=== PATIENT | female | born 1965 | race African-American/Black ===

== ENCOUNTER 2019-12-15 07:23 | Emergency (ER) | payer OTHER ==
[~2019-12-15] VITALS: Ht 162.6 cm; Wt 81.6 kg
[2019-12-15 07:34] VITALS: BP 135/78
[2019-12-15] MEDS ORDERED: KETOROLAC TROMETH 60MG/2ML VIAL IM ONE (07:45)
== END 2019-12-15 08:44 | disposition home or self-care (01) ==
LOC: ER 07:23
DX: S52.92XA Unspecified fracture of left forearm, initial encounter for closed fracture (principal); E03.9 Hypothyroidism, unspecified; F17.210 Nicotine dependence, cigarettes, uncomplicated; W01.0XXA Fall on same level from slipping, tripping and stumbling without subsequent striking against object, initial encounter; Y93.89 Activity, other specified; Y92.89 Other specified places as the place of occurrence of the external cause; Y99.8 Other external cause status
CPT/HCPCS: 29125; 73110; 73130; 96372; 99284; J1885

== ENCOUNTER 2023-09-11 21:56 | Emergency (ER) | payer OTHER ==
[~2023-09-11] VITALS: Ht 160 cm; Wt 76.3 kg
[2023-09-11 22:15] LABS: Basophils # (auto) 0.1 10 ^3/uL (0-0.2); Basophils % (auto) 0.6 % (0.0-2.0); Eosinophils # (auto) 0.1 10 ^3/uL (0-0.8); Eosinophils % (auto) 1.2 % (0.0-7.0); Hematocrit 40.8 % (36.0-46.0); Hemoglobin 13.3 g/dL (12.2-16.2); Lymphocytes # (auto) 2.1 10 ^3/uL (0.4-5.4); Lymphocytes % (auto) 22.8 % (10.0-50.0); Mean Corpuscular Hemoglobin 29.9 pg (28.0-32.0); Mean Corpuscular Hgb Conc. 32.6 g/dL (32.0-36.0); Mean Corpuscular Volume 91.8 fL (80.0-100.0); Monocytes # (auto) 0.7 10 ^3/uL (0-1.3); Monocytes % (auto) 8.2 % (0.0-12.0); Neutrophils # (auto) 6.1 10 ^3/uL (1.6-8.6); Neutrophils % (auto) 67.2 % (37.0-80.0); Nucleated Red Blood Cells % 0.1 %; Red Blood Cells 4.44 10^6/uL (4.0-5.20); Red Cell Distribution Width 13.5 % (11.8-14.3); White Blood Cell 9.1 10^3/uL (4.4-10.8)
[2023-09-11 22:33] LABS: Alanine Aminotransferase 23 U/L (7-40); Albumin 4.1 g/dL (3.2-4.8); Alkaline Phosphatase 91 U/L (46-116); Anion Gap 5 (5-15); Aspartate Aminotransferase 19 U/L (13-40); BUN/Creatinine Ratio 13.5 (10.0-20.0); Blood Urea Nitrogen 12 mg/dL (9-23); Calcium 9.9 mg/dL (8.7-10.4); Carbon Dioxide 24 mmol/L (20-30); Chloride 112 mmol/L (98-107); Glucose 104 mg/dL (74-106); Potassium 3.9 mmol/L (3.5-5.1); Sodium 141 mmol/L (136-145)
[2023-09-11 22:34] LABS: Bilirubin, Total 0.8 mg/dL (0.2-1.0); Total Protein 6.8 g/dL (5.7-8.2)
[2023-09-11 22:46] LABS: Urine Bacteria None Seen /hpf (None Seen)
[2023-09-11 23:02] LABS: Urine Blood Negative /uL (Negative); Urine Clarity Turbid (Clear); Urine Color Colorless (Yellow); Urine Mucus FEW (None Seen); Urine Protein, UAD Negative (Negative); Urine Specific Gravity 1.026 (1.001-1.035); Urine Urobilinogen Normal (Negative); Urine WBC 3 /hpf (0 - 5); Urine pH 5.5 (5.0-9.0)
[2023-09-12 00:33] VITALS: BP 148/86; PULSE 95; RESP 14; TEMP 98.7; O2SAT 96
[2023-09-12] MEDS ORDERED: IBUP-1456 PO (04:04)
[2023-09-12] MEDS ORDERED: METH-1181 PO (04:04)
[2023-09-12] MEDS: KETOROLAC TROMETH 60MG/2ML VIAL IM ONE (04:20)
[2023-09-12] MEDS: METHOCARBAMOL 500 MG TAB PO ONE (04:21)
== END 2023-09-12 04:30 | disposition home or self-care (01) ==
LOC: ER 21:56
DX: R07.89 Other chest pain (principal); M62.830 Muscle spasm of back; M79.605 Pain in left leg; M19.90 Unspecified osteoarthritis, unspecified site; J45.909 Unspecified asthma, uncomplicated; E07.9 Disorder of thyroid, unspecified; F17.210 Nicotine dependence, cigarettes, uncomplicated; Z90.49 Acquired absence of other specified parts of digestive tract; Z90.710 Acquired absence of both cervix and uterus
CPT/HCPCS: 36415; 71045; 74176; 80053; 81001; 82962; 84484; 85025; 93005; 96372; 99285; J1885

== ENCOUNTER 2024-04-30 11:06 | Emergency (ER) | payer OTHER ==
[~2024-04-30] VITALS: Ht 157.5 cm; Wt 76.8 kg
[~2024-04-30 11:06] MED LIST: IBUP-1456 PO; METH-1181 PO
--- NOTE | 2024-04-30 11:34 | ED.PDOC ---
SOB-HPI HPI Comments 58 y/o F, with PMHX of asthma and bronchitis presents to the ED for CC of shortness of breath. Patient states, she has been experiencing shortness of breath with associated symptoms of cough, fever, chest discomfort xdays. Patient comments on, concerned of potential pneumonia. Patient denies fever, nasal congestion, sore throat, or N/V/D. No other symptoms or modifying factors at this time. Chief Complaint: Shortness of Breath Time Seen by MD: 11:00 Primary Care Provider: UNKNOWN Reviewed notes: Nurses Notes, Medications, Allergies Information Source: Patient Mode of Arrival: Ambulatory Severity: Moderate Timing: Days Duration: Since onset Context: At Rest PE Risk Factors: None History of: Asthma Prehospital treatment: None Modifying Factors: Nothing Associated Signs and Symptoms: Fever, Cough Past Medical History PAST MEDICAL HISTORY: Arthritis, Asthma, Thyroid Past Medical History (Other): bronchitis Surgical History: Appendectomy, Hysterectomy Surgical History (Other): gluteal fat transfer 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, Uterine Fibroids Family History Family History: Unknown Social History Smoker: Cigarettes, Less Than 1 Pack/Day Alcohol: Denies ETOH Use Drugs: Denies Drug Use Lives In: Home Constitutional: denies: chills, diaphoresis, fatigue, fever, malaise, sweats, weakness, others EENTM: denies: blurred vision, double vision, ear bleeding, ear discharge, ear drainage, ear pain, ear ringing, eye pain, eye redness, hearing loss, mouth pain, mouth swelling, nasal discharge, nose bleeding, nose congestion, nose pain, photophobia, tearing, throat pain, throat swelling, voice changes, others Respiratory: reports: cough, shortness of breath; denies: hemoptysis, or thopnea, SOB at rest, SOB with excertion, stridor, wheezing, others Cardiovascular: denies: chest pain, dizzy spells, diaphoresis, Dyspnea on exertion, edema, irregular heart beat, left arm pain, lightheadedness, palpitations, PND, syncope, others Gastrointestinal: denies: abdomen distended, abdominal pain, blood streaked bowels, constipated, diarrhea, dysphagia, difficulty swallowing, hematemesis, melena, nausea, poor appetite, poor fluid intake, rectal bleeding, rectal pain, vomiting, others Genitourinary: denies: abnormal vagina bleeding, burning, dyspareunia, dysuria, flank pain, frequency, hematuria, incontinence, pain, , vagina discharge, urgency, others Neurological: denies: dizziness, fainting, headache, left sided numbness, left sided weakness, numbness, paresthesia, pre-existing deficit, right sided numbness, right sided weakness, seizure, speech problems, tingling, tremors, weakness, others Musculoskeletal: denies: back pain, gout, joint pain, joint swelling, muscle pain, muscle stiffness, neck pain, others Integumetry: denies: bruises, change in color, change in hair/nails, dryness, laceration, lesions, lumps, rash, wounds, others Allergic/Immunocompromised: denies: Difficulty Healing, Frequent Infections, Hives, Itching, others Hematologic/Lymphatic: denies: anemia, blood clots, easy bleeding, easy bruising, swollen glands, others Endocrine: denies: excessive hunger, excessive sweating, excessive thirst, excessive urination, flushing, intolerance to cold, intolerance to heat, unexplained weight gain, unexplained weight loss, others Psychiatric: denies: anxiety, bipolar disorder, depression, hopeless, panic disorder, schizophrenia, sleepless, suicidal, others All Other Systems: Reviewed and Negative Physical Exam General Appearance: Moderate Distress HEENT: Normal ENT Inspection, Pharynx Normal, TMs Normal Neck: Full Range of Motion, Non-Tender, Normal, Normal Inspection Respiratory: Other (Coarse breath sounds) Cardiovascular: No Edema, No JVD, No Murmur, No Gallop, Normal Peripheral Pulses, Regular Rate/Rhythm Breast Exam: Deferred Gastrointestinal: No Organomegaly, Non Tender, No Pulsatile Mass, Normal Bowel Sounds, Soft Genitalia: Deferred Pelvic: Deferred Rectal: Deferred Extremities: No calf tenderness, Normal capillary refill, Normal inspection, Normal range of motion, Non-tender, No pedal edema Musculoskeletal : Apperance: Normal Neurologic: 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 Was a procedure done?: No Differential Dx Differential Diagnosis: Anxiety, Asthma, Bronchitis, CHF, COPD, Pneumonia, Pharyngitis, URI X-Ray, Labs, Meds, VS Vital Signs Date Time Temp Pulse Resp B/P (MAP) Pulse Ox O2 Delivery O2 Flow Rate FiO2 04/30/24 11:34 110 04/30/24 11:29 20 95 Room Air* 0 21 04/30/24 11:24 98.6 114 20 141/90 (107) 95 Lab Test 04/30/24 12:45 04/30/24 11:26 Range/Units Urine Color Light-yellow Yellow Urine Clarity Clear Clear Urine pH 5.5 5.0-9.0 Urine Specific [place] 1.009 1.001-1.035 Urine Protein Negative Negative Urine Ketones Negative Negative Urine Blood Negative Negative /uL Urine Nitrite Negative Negative Urine Bilirubin Negative Negative Urine Urobilinogen Normal Negative mg/dL Urine Leukocyte Esterase Negative Negative /uL Urine RBC None seen 0 - 4 /hpf Urine Microscopic WBC 2 0-5 /HPF Urine Squamous Epithelial Cells Few <5 /hpf Urine Bacteria Few H None Seen /hpf Urine Glucose Normal Normal mg/dL White Blood Count 6.3 4.4-10.8 10^3/uL Red Blood Count 4.30 4.0-5.20 10^6/uL Hemoglobin 12.9 12.2-16.2 g/dL Hematocrit 39.7 36.0-46.0 % Mean Corpuscular Volume 92.3 80.0-100.0 fL Mean Corpuscular Hemoglobin 30.0 28.0-32.0 pg Mean Corpuscular Hemoglobin Concent 32.5 32.0-36.0 g/dL Red Cell Distribution Width 13.8 11.8-14.3 % Platelet Count 350 140-450 10^3/uL Mean Platelet Volume 7.7 6.9-10.8 fL Neutrophils (%) (Auto) 52.1 37.0-80.0 % Lymphocytes (%) (Auto) 36.1 10.0-50.0 % Monocytes (%) (Auto) 10.1 0.0-12.0 % Eosinophils (%) (Auto) 1.3 0.0-7.0 % Basophils (%) (Auto) 0.4 0.0-2.0 % Neutrophils # (Auto) 3.3 1.6-8.6 10 ^3/uL Lymphocytes # (Auto) 2.3 0.4-5.4 10 ^3/uL Monocytes # (Auto) 0.6 0-1.3 10 ^3/uL Eosinophils # (Auto) 0.1 0-0.8 10 ^3/uL Basophils # (Auto) 0 0-0.2 10 ^3/uL Nucleated Red Blood Cells 0.1 % Sodium Level 143 136-145 mmol/L Potassium Level 3.6 3.5-5.1 mmol/L Chloride Level 110 H 98-107 mmol/L Carbon Dioxide Level 23 20-31 mmol/L Anion Gap 10 5-15 Blood Urea Nitrogen 8 L 9-23 mg/dL Creatinine 0.83 0.550-1.02 mg/dL Glomerular Filtration Rate Calc 81 >90 mL/min BUN/Creatinine Ratio 9.6 L 10.0-20.0 Serum Glucose 87 74-106 mg/dL Calcium Level 9.6 8.7-10.4 mg/dL [place] [id number] Ph: [phone] DIAGNOSTIC IMAGING Diagnostic Imaging Report : [id number] Signed PATIENT: SORAYA KU LACCT: [id number] UNIT: [id number] : 1965 LOC: ER ROOM / BED: / AGE / SEX: 58 / F ADM STATUS: REG ER SERVICE 111 ORDERING PHYSICIAN: RISSA SHEIKH MD PROCEDURE(s): CXRP - CHEST PORTABLE REASON: sob ORDER NUMBER(s): [id number], ACCESSION NUMBER(s): [id number] CHEST RADIOGRAPH Indication: sob Technique: Single frontal view of the chest was obtained COMPARISON: XY CHEST XRAY 1 VIEW on DOS: 09/12/23 FINDINGS: Lines and Tubes: None Lungs: Increased interstitial prominence Pleura: No effusion. No pneumothorax. Cardiomediastinal contours: Unremarkable Bones: Unremarkable IMPRESSION: Mild pulmonary vascular congestion ATED BY: CHRISTIAN LIRA MD DICTATED DATE/TIME: 04/30/24 1146 SIGNED BY: CHRISTIAN LIRA MD SIGNED DATE/TIME: 04/30/24 1146 CC: Patient alert. Complaining of shortness a breath. No leg swelling. Vitals stable. On examination she does have coarse breath sounds possible COPD exacerbation versus CHF. She continues to smoke cigarettes. Tachycardia. Was given steroid. Was given Lasix. Chest x-ray reviewed does show CHF. WBC within normal limits. Hemoglobin within normal limits. Explained to the patient. Continue cardiac monitoring. Time of 1ST Reevaluation: 11:30 Reevaluation 1ST: Unchanged Patient Education/Counseling: Diagnosis, Treatment Family Education/Counseling: No Family Present Additional Information I reviewed the following notes from patient's past medical encounters: 09/11/23 DX: CHEST TIGHTNESS The following tests were ordered, and results were reviewed by me: CBC, BMP, UA, CXR, EKG I reviewed and agreed with the following test results read by other providers: CXR I discussed treatment and results with medical personnel and: PATIENT Departure 1 Departure Time of Disposition: 11:58 Impression: Primary Impression: Diastolic heart failure Qualified Codes: I50.33 - Acute on chronic diastolic (congestive) heart failure Additional Impressions: COPD exacerbation Pneumonitis Disposition: ADMITTED INPATIENT Admit to: Med Surg Condition: Guarded Critical Care Note Critical Care Time?: No Stability Stability form required: No Heart Score Heart Score: Heart Score Response (Comments) Value History N/A 0 EKG N/A 0 Age N/A 0 Risk Factors N/A 0 Troponin N/A 0 Total 0 I personally scribed for RISSA SHEIKH MD ([email or web address]) on 04/30/24 at 11:33. Electronically submitted by Freida Wick ([email or web address]). I personally scribed for RISSA SHEIKH MD ([email or web address]) on 04/30/24 at 12:00. Electronically submitted by Freida Wick ([email or web address]). I personally scribed for RISSA SHEIKH MD ([email or web address]) on 04/30/24 at 13:26. Electronically submitted by Freida Wick ([email or web address]). RISSA SHEIKH MD Apr 30, 2024 11:33
[2024-04-30 11:45] LABS: Basophils # (auto) 0 10 ^3/uL (0-0.2); Basophils % (auto) 0.4 % (0.0-2.0); Eosinophils # (auto) 0.1 10 ^3/uL (0-0.8); Eosinophils % (auto) 1.3 % (0.0-7.0); Hematocrit 39.7 % (36.0-46.0); Hemoglobin 12.9 g/dL (12.2-16.2); Lymphocytes # (auto) 2.3 10 ^3/uL (0.4-5.4); Lymphocytes % (auto) 36.1 % (10.0-50.0); Mean Corpuscular Hgb Conc. 32.5 g/dL (32.0-36.0); Mean Corpuscular Volume 92.3 fL (80.0-100.0); Monocytes # (auto) 0.6 10 ^3/uL (0-1.3); Monocytes % (auto) 10.1 % (0.0-12.0); Neutrophils # (auto) 3.3 10 ^3/uL (1.6-8.6); Neutrophils % (auto) 52.1 % (37.0-80.0); Nucleated Red Blood Cells % 0.1 %; Platelet Count (auto) 350 10^3/uL (140-450); Red Cell Distribution Width 13.8 % (11.8-14.3); White Blood Cell 6.3 10^3/uL (4.4-10.8)
--- NOTE | 2024-04-30 11:49 | DVH ---
CHEST RADIOGRAPH Indication: sob Technique: Single frontal view of the chest was obtained COMPARISON: XY CHEST XRAY 1 VIEW on DOS: 09/12/23 FINDINGS: Lines and Tubes: None Lungs: Increased interstitial prominence Pleura: No effusion. No pneumothorax. Cardiomediastinal contours: Unremarkable Bones: Unremarkable IMPRESSION: Mild pulmonary vascular congestion
[2024-04-30 11:56] LABS: Potassium 3.6 mmol/L (3.5-5.1); Sodium 143 mmol/L (136-145)
[2024-04-30 11:57] LABS: Anion Gap 10 (5-15); Carbon Dioxide 23 mmol/L (20-31)
[2024-04-30 11:58] LABS: Calcium 9.6 mg/dL (8.7-10.4); Chloride 110 mmol/L (98-107)
[2024-04-30 12:02] LABS: Glucose 87 mg/dL (74-106)
[2024-04-30 12:03] LABS: BUN/Creatinine Ratio 9.6 (10.0-20.0)
[2024-04-30 12:11] LABS: Blood Urea Nitrogen 8 mg/dL (9-23)
[2024-04-30 13:03] LABS: Urine Bacteria FEW /hpf (None Seen); Urine Blood Negative /uL (Negative); Urine Clarity Clear (Clear); Urine Color Light-Yellow (Yellow); Urine Protein, UAD Negative (Negative); Urine Specific Gravity 1.009 (1.001-1.035); Urine Squamous Epithelial Cell FEW /hpf (<5); Urine Urobilinogen Normal (Negative); Urine WBC 2 /HPF (0-5); Urine pH 5.5 (5.0-9.0)
[2024-04-30 13:56] VITALS: BP 158/94; PULSE 108; RESP 18; TEMP 98.1; O2SAT 95
[2024-04-30] MEDS: methylPREDNISolone SOD SUCC 125 MG/2 ML VL IV ONE (14:00)
[2024-04-30] MEDS: FUROSEMIDE 20 MG/2 ML VIAL IV ONE (14:02)
--- NOTE | 2024-05-01 00:32 | ECG ---
[facility] Test Date: 2024-04-30 Test Time: 11:34:42 Pat Name: SORAYA KU Department: ED Room: Gender: F Coremaker Machine: PILAR : 1965 Requested By: RISSA SHEIKH Order Number: [id number] Reading MD: Hussain Puente Measurements Intervals [place] Rate: 110 P: 74 NE: 143 QRS: 60 QRSD: 87 T: 45 QT: 333 QTc: 451 Interpretive Statements Sinus tachycardia Probable left atrial enlargement Low voltage, precordial leads Baseline wander in lead(s) II,III,aVF Electronically Signed On 05-01-2024 12:10:14 PST by Hussain Puente Please click the below link to view image of tracing.
== END 2024-04-30 15:55 | disposition left against medical advice (07) ==
LOC: ER 11:06
DX: J44.1 Chronic obstructive pulmonary disease with (acute) exacerbation (principal); J18.9 Pneumonia, unspecified organism; I50.9 Heart failure, unspecified; F17.210 Nicotine dependence, cigarettes, uncomplicated; Z90.49 Acquired absence of other specified parts of digestive tract; Z90.710 Acquired absence of both cervix and uterus
CPT/HCPCS: 36415; 71045; 80048; 81001; 85025; 93005; 96374; 96375; 99285; J1940; J2919